=== PATIENT | male | born 1945 | race Caucasian/White ===

== ENCOUNTER 2019-03-13 23:38 | Observation (INO) | payer MEDICARE ==
[~2019-03-13] VITALS: Ht 188 cm; Wt 96.7 kg
[2019-03-14] MEDS ORDERED: ZESTRIL 10MG10 MG PO (00:03)
[2019-03-14 00:21] LABS: COLLECTION METHOD CLEAN CATCH
[2019-03-14 00:25] LABS: BASO # 0.1 (0.0-0.2); BASO % 0.6 % (0.0-2.0); EOS # 0.3 (0.0-0.7); EOS % 2.9 % (0-4.0); GRAN # 4.4 (1.4-6.5); GRAN % 50.6 % (42.2-75.2); HEMATOCRIT 41.7 % (42.0-52.0); HEMOGLOBIN 14.1 g/dl (13.5-18.0); LYMPH # 3.1 (1.2-3.4); MEAN CELL VOLUME 91 fl (80.0-100.0); MEAN CORPUSCULAR HEMOGLOBIN 31 pg (27.0-31.0); MEAN CORPUSCULAR HGB CONC 34 g/dl (33.0-37.0); MEAN PLATELET VOLUME 10.5 fl (7.4-10.4); MONO # 0.9 (0.1-0.6); MONO % 10.6 % (1.7-9.3); PLATELET COUNT 226 K/mm3 (130-400); RED BLOOD COUNT 4.59 M/mm3 (4.20-5.60); REDCELL DISTRIBUTION WIDTH-CV 13.1 % (11.5-14.5)
[2019-03-14 00:28] LABS: PH 5 (5-8); SQUAMOUS EPITHELIAL None Seen /hpf; URINE APPEARANCE Clear; URINE BACTERIA None Seen /hpf; URINE BILIRUBIN Negative (NEGATIVE); URINE BLOOD Negative (NEGATIVE); URINE COLOR Straw; URINE GLUCOSE Negative (NEGATIVE); URINE KETONE Negative (NEGATIVE); URINE LEUKOCYTE ESTERASE Negative (NEGATIVE); URINE NITRATE Negative (NEGATIVE); URINE PROTEIN(semi-quant) Negative (NEGATIVE); URINE RBC 0-2 /hpf; URINE UROBILINOGEN Negative (NEGATIVE)
[2019-03-14 00:34] LABS: ALBUMIN 4.4 gm/dL (3.5-5.0); BILIRUBIN,TOTAL 0.2 mg/dL (0.0-1.0); CALCIUM 9.2 mg/dL (8.4-10.2); CREATININE, serum 1.04 (0.66-1.25); POTASSIUM 4.4 mmol/L (3.4-5.0); TOTAL PROTEIN 7.8 gm/dL (6.4-8.2)
[2019-03-14 02:11] VITALS: BP 148/76; PULSE 71; TEMP 97.9
--- NOTE | 2019-03-14 02:58 | NUR ---
Patient to the floor at 0215. States pain is 4-5/10 to right lower abdomen. Refuses anything for pain. Med rec completed and 5 page completed with patient. NKDA. Patient was hypertensive in ED, but blood pressure has reduced and is WNL now. Will continue to monitor patient.
[2019-03-14 05:19] VITALS: BP 153/76; PULSE 73; TEMP 97.8
[2019-03-14 07:59] VITALS: BP 158/73; PULSE 74; TEMP 97.9
--- NOTE | 2019-03-14 08:44 | NUR ---
Patient resting in bed at this time. Patient is alert and oriented, answers questions appropriately. Patient rates his pain at 4/10 in his LLQ, states pain is dull and constant. Patient continues to decline pain medication, states pain is bearable. Patient denies further needs, call light within reach.
[2019-03-14 13:29] VITALS: BP 133/73; PULSE 76; TEMP 97.9
[2019-03-14 17:57] VITALS: BP 129/60; PULSE 72; TEMP 97.9
--- NOTE | 2019-03-14 18:22 | NUR ---
Patient resting in his room at this time. Patient has had no complaints of pain or nausea and is independent in his room. Patient denies needs at this time, call light within reach.
--- NOTE | 2019-03-14 19:08 | NUR ---
Report received from MEGHANA Rodríguez. Patient resting in bed with eyes closed and lights off at this time.
[2019-03-14 19:59] VITALS: BP 126/70; PULSE 73; TEMP 98.4
[2019-03-15 01:13] VITALS: BP 136/40; PULSE 70; TEMP 97.6
--- NOTE | 2019-03-15 04:13 | NUR ---
Patient has rested well throughout the night. States the pain is still there and he isn't sure if its any better than yesterday or not. Currently resting with eyes closed in bed. Denies further needs. Will continue to monitor.
[2019-03-15 04:55] VITALS: BP 155/74; PULSE 58; TEMP 97.9
--- NOTE | 2019-03-15 07:00 | NUR ---
This nurse is taking over care of patient at this time. Patient is resting well. Denies pain and nausea at this time. No other changes at this time.
[2019-03-15 08:12] LABS: BASO % 0.4 % (0.0-2.0); EOS # 0.2 (0.0-0.7); EOS % 2.2 % (0-4.0); GRAN # 4.7 (1.4-6.5); GRAN % 61.7 % (42.2-75.2); HEMATOCRIT 38.1 % (42.0-52.0); HEMOGLOBIN 12.9 g/dl (13.5-18.0); LYMPH % 25.8 % (20.0-51.0); MEAN CELL VOLUME 91 fl (80.0-100.0); MEAN CORPUSCULAR HEMOGLOBIN 31 pg (27.0-31.0); MEAN CORPUSCULAR HGB CONC 34 g/dl (33.0-37.0); MEAN PLATELET VOLUME 10.2 fl (7.4-10.4); MONO # 0.7 (0.1-0.6); MONO % 9.6 % (1.7-9.3); PLATELET COUNT 193 K/mm3 (130-400); RED BLOOD COUNT 4.21 M/mm3 (4.20-5.60); REDCELL DISTRIBUTION WIDTH-CV 13.2 % (11.5-14.5)
[2019-03-15 08:19] VITALS: BP 158/74; PULSE 70; TEMP 97.8
--- NOTE | 2019-03-15 09:50 | NUR ---
resting in bed and is ready to go home, full assessment completed, see intervention for further info, is ready for discharge, discharge instructions given to patient and his and verbalizes understanding
--- NOTE | 2019-03-15 10:05 | NUR ---
discharged ambulatory
== END 2019-03-15 10:00 | disposition home or self-care (01) ==
LOC: COL.ER 23:38 → SURG 03-14 01:43
PROVIDERS: Emergency Medicine; ADMIT Surgery
DX: K63.89 Other specified diseases of intestine (principal); I10 Essential (primary) hypertension; F17.290 Nicotine dependence, other tobacco product, uncomplicated; Z87.19 Personal history of other diseases of the digestive system; Z79.899 Other long term (current) drug therapy; Z79.891 Long term (current) use of opiate analgesic
CPT/HCPCS: G0378; J2405; J7030; Q9967